=== PATIENT | female | born 1970 | race Caucasian/White ===

== ENCOUNTER 2016-04-06 20:24 | Emergency (ER) | payer OTHER ==
[~2016-04-06] VITALS: Ht 139.7 cm; Wt 93.8 kg
[2016-04-06 21:53] VITALS: BP 125/96
== END 2016-04-06 22:04 | disposition home or self-care (01) ==
LOC: EME 20:24 → RME 20:24
DX: S67.21XA Crushing injury of right hand, initial encounter (principal); Y04.0XXA Assault by unarmed brawl or fight, initial encounter
CPT/HCPCS: 73110; 73130; 99281; 99284